=== PATIENT | male | born 1935 | race Caucasian/White ===

== ENCOUNTER 2019-05-22 16:56 | Inpatient (IN) | payer MEDICARE, OTHER ==
[~2019-05-22] VITALS: Ht 188 cm; Wt 97.4 kg
--- NOTE | 2019-05-22 17:50 | NUR ---
PT BIB [facility] AFTER HE WAS FOUND ON THE BATHROOM FLOOR. PT REPORTS HE WAS ON THE FLOOR AFTER A GLF, AND HAD BEEN LAYING THERE FOR 12 HOURS. PT ALSO REPORTS SOB. FAMILY REPORTS PT HAS FALLEN 4 TIMES IN THE LAST 2 DAYS. VS STABLE AT THIS TIME. FAMILY AT BEDSIDE. PT SEEN BY DR LUCIANO. WILL CONTINUE TO MONITOR.
--- NOTE | 2019-05-22 17:58 | NUR ---
FAMILY REPORTS PT IS NOT ON ANY MEDICATIONS. PT IS ON HOME OXYGEN 4L AT HOME.
[2019-05-22] MEDS ORDERED: ALBUTEROL SULFATE 2.5 MG/3 ML NPPB ONE (18:00)
[2019-05-22] MEDS ORDERED: IPRATROPIUM 0.5 MG/2.5 ML INHA NPPB ONE (18:00)
[2019-05-22 18:06] LABS: BASOPHILS # (AUTO) 0.02 x10^3/uL (0-0.1); BASOPHILS % (AUTO) 0 % (0-1); EOSINOPHILS # (AUTO) 0.04 x10^3/uL (0-0.4); EOSINOPHILS % (AUTO) 1 % (1-7); LYMPHOCYTES # (AUTO) 0.63 x10^3/uL (1-3.4); LYMPHOCYTES % (AUTO) 8 % (22-44); MD NO; MEAN CORPUSCULAR HEMOGLOBIN 30.7 pg (27.5-34.5); MEAN CORPUSCULAR HGB CONC 31.5 g/dL (33.2-36.2); MEAN CORPUSCULAR VOLUME 97.3 fL (81-97); MONOCYTES # (AUTO) 0.62 x10^3/uL (0.2-0.8); MONOCYTES % (AUTO) 8 % (2-9); NEUTROPHILS # (AUTO) 6.24 x10^3/uL (1.8-6.8); NEUTROPHILS % (AUTO) 83 % (42-75); PLATELET COUNT 190 x10^3/uL (130-400); RED BLOOD COUNT 5.16 x10^6/uL (4.38-5.82); RED CELL DISTRIBUTION WIDTH 15.7 % (9.4-14.8)
[2019-05-22 18:19] LABS: ALANINE AMINOTRANSFERASE 19 U/L (12-78); ANION GAP 8 mmol/L (5-15); CALCIUM 8.9 mg/dL (8.5-10.1); CHLORIDE 98 mmol/L (98-107)
[2019-05-22 18:23] LABS: ALKALINE PHOSPHATASE 114 U/L (45-117); BILIRUBIN,TOTAL 1.5 mg/dL (0.2-1.0); CREATINE KINASE, TOTAL 134 U/L (39-308); TOTAL PROTEIN 7.5 g/dL (6.4-8.2); TROPONIN I < 0.015 ng/mL (0.000-0.045)
--- NOTE | 2019-05-22 18:33 | NUR ---
PT RESTING IN ROOM. VS STABLE. BARREL SCRAPER ON. CALL LIGHT IN PLACE. WILL CONTINUE TO MONITOR.
[2019-05-22] MEDS ORDERED: SODIUM CHLORIDE FLUSH 10ML SYR IVF ONE (19:00)
--- NOTE | 2019-05-22 19:06 | NUR ---
Report received from SRUTHI Montilla Pt alert and sitting up on tedreusebio. Pt stating he wants a chocolate milkshake and told his family members "get me a damn milkshake". This RN and SRUTHI Montilla educated pt on current NPO status.
--- NOTE | 2019-05-22 19:50 | NUR ---
MD at bedside pt agreeable to admit. Pt okay for PO intake per MD.
[2019-05-22] MEDS ORDERED: FUROSEMIDE 40 MG/4 ML IV ONE (20:00)
[2019-05-22] MEDS ORDERED: FUROSEMIDE 40 MG/4 ML ONE (20:29)
--- NOTE | 2019-05-22 20:44 | NUR ---
Pt able to stand at bedside to pee in urinal. Urine sent to lab. Pt medicated per JUL. Pt tolerated one chocolate protein shake. Admitting MD at bedside.
[2019-05-22 20:51] LABS: MICROSCOPIC AUTO
[2019-05-22] MEDS ORDERED: BISACODYL 10 MG SUPP PR PRN (21:00)
[2019-05-22] MEDS ORDERED: ONDANSETRON ODT 4 MG PO PRN (21:00)
[2019-05-22] MEDS ORDERED: POLYETHYLENE GLYCOL 17 GM PACKET PO PRN (21:00)
[2019-05-22] MEDS ORDERED: ACETAMINOPHEN 325 MG TABLET PO PRN (21:00)
[2019-05-22] MEDS ORDERED: HEPARIN 5,000 UNITS/ML, 1ML ONE (21:19)
[2019-05-22] MEDS ORDERED: CEFTRIAXONE PMX 1GM/50ML 50 ML IV ONE (21:30)
[2019-05-22] MEDS: HEPARIN 5,000 UNITS/ML, 1ML SQ SCH (21:36)
--- NOTE | 2019-05-22 21:38 | NUR ---
Report given to SRUTHI Arias Heparin given.
--- NOTE | 2019-05-22 21:52 | NUR ---
At time of admit, pt alert and in NAD. Pt on baseline 4L NC.
[2019-05-22 22:02] VITALS: BP 136/84
[2019-05-22] MEDS: CEFTRIAXONE PMX 1GM/50ML 50 ML IV SCH (23:12)
[2019-05-22] MEDS: metFORMIN 500 MG TABLET PO SCH (23:13)
[2019-05-22] MEDS: SODIUM CHLORIDE FLUSH 10ML SYR IVF SCH (23:15)
[2019-05-23] MEDS ORDERED: DEXTROSE 4 GM TAB.CHEW PO PRN
[2019-05-23] MEDS ORDERED: GLUCAGON 1 MG IM PRN
[2019-05-23] MEDS ORDERED: DEXTROSE 50%, 50ML SYRINGE IVPush PRN
[2019-05-23] MEDS: INSULIN LISPRO 100 UNITS/ML, PEN SQ-INSULIN SCH ×5 (00:04→21:12)
[2019-05-23 00:08] VITALS: BP 147/84
[2019-05-23] MEDS ORDERED: ALBUTEROL/IPRATROPIUM 2.5MG/0.5MG, 3 ML NPPB SCH (00:30)
[2019-05-23] MEDS ORDERED: ALBUTEROL/IPRATROPIUM 2.5MG/0.5MG, 3 ML NPPB PRN ×2 (00:30)
[2019-05-23] MEDS: methylPREDNISolone SOD SUCC 125 MG/2 ML IVPush SCH ×3 (03:17→17:31)
[2019-05-23] MEDS ORDERED: INSULIN LISPRO 100 UNIT/ML, 3ML VIAL SQ ONE (03:30)
[2019-05-23] MEDS: HEPARIN 5,000 UNITS/ML, 1ML SQ SCH ×3 (05:58→23:49)
[2019-05-23 06:36] LABS: ANION GAP 10 mmol/L (5-15); CALCIUM 8.2 mg/dL (8.5-10.1); CHLORIDE 99 mmol/L (98-107)
[2019-05-23 06:40] LABS: BASOPHILS # (AUTO) 0.02 x10^3/uL (0-0.1); BASOPHILS % (AUTO) 0 % (0-1); CHOL/HDL RATIO 2.7; CHOLESTEROL, TOTAL 168 mg/dL (140-239); CREATININE 1.07 mg/dL (0.7-1.3); EOSINOPHILS # (AUTO) 0.01 x10^3/uL (0-0.4); EOSINOPHILS % (AUTO) 0 % (1-7); HDL CHOL % 38 % (26-37); HDL CHOLESTEROL (DIRECT) 63 mg/dL (40-60); LDL CHOLESTEROL,CALCULATED 91 mg/dL (54-169); LDL/HDL RATIO 1.4 (0.5-3.0); LYMPHOCYTES # (AUTO) 0.32 x10^3/uL (1-3.4); LYMPHOCYTES % (AUTO) 6 % (22-44); MD NO; MEAN CORPUSCULAR HEMOGLOBIN 31.2 pg (27.5-34.5); MEAN CORPUSCULAR HGB CONC 32.2 g/dL (33.2-36.2); MEAN CORPUSCULAR VOLUME 96.9 fL (81-97); MEAN PLATELET VOLUME 9.6 fL (7.4-10.4); MONOCYTES # (AUTO) 0.11 x10^3/uL (0.2-0.8); MONOCYTES % (AUTO) 2 % (2-9); NEUTROPHILS # (AUTO) 4.77 x10^3/uL (1.8-6.8); NEUTROPHILS % (AUTO) 91 % (42-75); PLATELET COUNT 184 x10^3/uL (130-400); RED BLOOD COUNT 4.68 x10^6/uL (4.38-5.82); TRIGLYCERIDES 68 mg/dL (50-200); VLDL CHOLESTEROL 14 mg/dL (0-25)
[2019-05-23 07:08] VITALS: BP 107/64
[2019-05-23] MEDS ORDERED: INSULIN GLARGINE 100 UNITS/ML, PEN SQ-INSULIN SCH (07:30)
[2019-05-23] MEDS: metFORMIN 500 MG TABLET PO SCH ×2 (08:50→17:31)
[2019-05-23] MEDS: FUROSEMIDE 20 MG/2 ML IV SCH ×2 (08:51→17:31)
[2019-05-23] MEDS: LISINOPRIL 5 MG TABLET PO SCH (08:51)
[2019-05-23] MEDS: SODIUM CHLORIDE FLUSH 10ML SYR IVF SCH ×2 (08:51→21:12)
[2019-05-23] MEDS: SENNA/DOCUSATE TABLET PO SCH (08:52)
[2019-05-23 13:43] VITALS: BP 103/68
[2019-05-23 14:38] LABS: TROPONIN I < 0.015 ng/mL (0.000-0.045)
[2019-05-23 18:48] VITALS: BP 112/71
[2019-05-23] MEDS: DOXYCYCLINE 100MG TABLET PO SCH (21:12)
[2019-05-23] MEDS: CEFTRIAXONE PMX 1GM/50ML 50 ML IV SCH (23:49)
[2019-05-24 00:49] VITALS: BP 105/62
[2019-05-24] MEDS: methylPREDNISolone SOD SUCC 125 MG/2 ML IVPush SCH ×3 (02:51→18:26)
[2019-05-24 06:16] LABS: ANION GAP 8 mmol/L (5-15); CALCIUM 8.3 mg/dL (8.5-10.1); CHLORIDE 97 mmol/L (98-107)
[2019-05-24 06:18] LABS: CREATININE 1.08 mg/dL (0.7-1.3)
[2019-05-24 07:56] VITALS: BP 122/76
[2019-05-24] MEDS: FUROSEMIDE 20 MG/2 ML IV SCH ×2 (07:59→18:26)
[2019-05-24] MEDS: DOXYCYCLINE 100MG TABLET PO SCH ×2 (08:00→21:27)
[2019-05-24] MEDS: SENNA/DOCUSATE TABLET PO SCH (08:00)
[2019-05-24] MEDS: metFORMIN 500 MG TABLET PO SCH ×2 (08:00→18:26)
[2019-05-24] MEDS: LISINOPRIL 5 MG TABLET PO SCH (08:01)
[2019-05-24] MEDS: SODIUM CHLORIDE FLUSH 10ML SYR IVF SCH ×2 (08:01→21:26)
[2019-05-24] MEDS: INSULIN LISPRO 100 UNITS/ML, PEN SQ-INSULIN SCH ×4 (08:02→21:26)
[2019-05-24] MEDS: HEPARIN 5,000 UNITS/ML, 1ML SQ SCH ×2 (08:35→15:54)
[2019-05-24] MEDS ORDERED: INSULIN GLARGINE 100 UNITS/ML, PEN SQ-INSULIN SCH (09:00)
[2019-05-24] MEDS: ASPIRIN 81 MG TABLET CHEW PO SCH (10:56)
[2019-05-24 14:57] VITALS: BP 110/66
[2019-05-24 19:14] VITALS: BP 103/67
[2019-05-24] MEDS: INSULIN GLARGINE 100 UNITS/ML, PEN SQ-INSULIN SCH (21:00)
[2019-05-25] MEDS: CEFTRIAXONE PMX 1GM/50ML 50 ML IV SCH (00:13)
[2019-05-25] MEDS: HEPARIN 5,000 UNITS/ML, 1ML SQ SCH ×3 (00:13→17:42)
[2019-05-25 00:18] VITALS: BP 119/80
[2019-05-25] MEDS: methylPREDNISolone SOD SUCC 125 MG/2 ML IVPush SCH ×2 (03:07→11:46)
[2019-05-25 07:15] VITALS: BP 111/66
[2019-05-25] MEDS: SENNA/DOCUSATE TABLET PO SCH (08:52)
[2019-05-25] MEDS: DOXYCYCLINE 100MG TABLET PO SCH ×2 (08:52→20:25)
[2019-05-25] MEDS: ASPIRIN 81 MG TABLET CHEW PO SCH (08:52)
[2019-05-25] MEDS: metFORMIN 500 MG TABLET PO SCH ×2 (08:53→17:42)
[2019-05-25] MEDS: INSULIN LISPRO 100 UNITS/ML, PEN SQ-INSULIN SCH ×4 (08:53→20:43)
[2019-05-25] MEDS: SODIUM CHLORIDE FLUSH 10ML SYR IVF SCH ×2 (09:00→20:25)
[2019-05-25] MEDS ORDERED: REGADENOSON 0.4 MG/5 ML SYRINGE ONE (10:49)
[2019-05-25] MEDS: FUROSEMIDE 20 MG/2 ML IV SCH ×3 (11:46→21:26)
[2019-05-25] MEDS: LISINOPRIL 5 MG TABLET PO SCH (11:46)
[2019-05-25] MEDS: INSULIN GLARGINE 100 UNITS/ML, PEN SQ-INSULIN SCH ×2 (12:19→20:43)
[2019-05-25 12:30] VITALS: BP 111/63
[2019-05-25] MEDS: ESCITALOPRAM 10MG TABLET PO SCH (14:01)
[2019-05-25 17:39] VITALS: BP 112/70
[2019-05-25 19:04] VITALS: BP 121/70
[2019-05-25] MEDS ORDERED: methylPREDNISolone SOD SUCC 125 MG/2 ML IVPush SCH (21:00)
[2019-05-25 21:29] VITALS: BP 140/88
[2019-05-26] MEDS: CEFTRIAXONE PMX 1GM/50ML 50 ML IV SCH (00:43)
[2019-05-26] MEDS: HEPARIN 5,000 UNITS/ML, 1ML SQ SCH ×2 (00:48→09:31)
[2019-05-26 03:00] VITALS: BP 104/63
[2019-05-26 06:28] LABS: CHLORIDE 96 mmol/L (98-107)
[2019-05-26 06:35] LABS: ANION GAP 5 mmol/L (5-15); CALCIUM 8.1 mg/dL (8.5-10.1); CREATININE 0.89 mg/dL (0.7-1.3)
[2019-05-26 06:47] VITALS: BP 95/59
[2019-05-26] MEDS: INSULIN LISPRO 100 UNITS/ML, PEN SQ-INSULIN SCH ×2 (08:02→11:22)
[2019-05-26] MEDS: SENNA/DOCUSATE TABLET PO SCH (09:31)
[2019-05-26] MEDS: metFORMIN 500 MG TABLET PO SCH (09:31)
[2019-05-26] MEDS: ESCITALOPRAM 10MG TABLET PO SCH (09:31)
[2019-05-26] MEDS: ASPIRIN 81 MG TABLET CHEW PO SCH (09:31)
[2019-05-26] MEDS: DOXYCYCLINE 100MG TABLET PO SCH (09:31)
[2019-05-26] MEDS: SODIUM CHLORIDE FLUSH 10ML SYR IVF SCH (09:32)
[2019-05-26 09:34] VITALS: BP 113/73
[2019-05-26] MEDS: LISINOPRIL 5 MG TABLET PO SCH (09:35)
[2019-05-26] MEDS ORDERED: ASPI-515 PO (11:30)
[2019-05-26] MEDS ORDERED: INSU100I13 SQ-INSULIN (11:30)
[2019-05-26] MEDS ORDERED: LISI5TAB7 PO (11:30)
[2019-05-26] MEDS ORDERED: PRED20TA PO (11:30)
[2019-05-26] MEDS ORDERED: DOXY100T PO (11:30)
[2019-05-26] MEDS ORDERED: METF500T PO (11:30)
[2019-05-26] MEDS ORDERED: FURO40TA6 PO (11:30)
[2019-05-26] MEDS ORDERED: ESCI10TA PO (11:30)
[2019-05-26] MEDS ORDERED: DEXT-230 PO (11:30)
[2019-05-26] MEDS ORDERED: POTA10TA5 PO (11:30)
[2019-05-26] MEDS ORDERED: HEPA50002 SQ (11:30)
[2019-05-26] MEDS ORDERED: POLY17PO5 PO (11:30)
[2019-05-26] MEDS ORDERED: SENN-193 PO (11:30)
[2019-05-26] MEDS ORDERED: INSU100I11 SQ-INSULIN (11:30)
[2019-05-26] MEDS ORDERED: ACET325T26 PO (11:30)
[2019-05-26] MEDS ORDERED: ATOR20TA PO (11:31)
[2019-05-26 12:12] VITALS: BP 122/73
[2019-05-26] MEDS ORDERED: POTASSIUM CHLORIDE 10 MEQ TABLET.ER PO SCH (17:00)
[2019-05-26] MEDS ORDERED: INSULIN GLARGINE 100 UNITS/ML, PEN SQ-INSULIN SCH (21:00)
[2019-05-27] MEDS ORDERED: FUROSEMIDE 40 MG TABLET PO SCH (09:00)
== END 2019-05-26 15:22 | DRG 291 ==
LOC: ED 19:31 → EDIP 20:50 → 4EST 22:04
PROVIDERS: ADMIT Hospitalist; ATTEND Hospitalist
DX: I11.0 Hypertensive heart disease with heart failure (principal); J96.21 Acute and chronic respiratory failure with hypoxia; J44.1 Chronic obstructive pulmonary disease with (acute) exacerbation; I50.23 Acute on chronic systolic (congestive) heart failure; D75.89 Other specified diseases of blood and blood-forming organs; E11.65 Type 2 diabetes mellitus with hyperglycemia; F32.9 Major depressive disorder, single episode, unspecified; G31.84 Mild cognitive impairment of uncertain or unknown etiology; I08.1 Rheumatic disorders of both mitral and tricuspid valves; I27.20 Pulmonary hypertension, unspecified; N30.90 Cystitis, unspecified without hematuria; Z66 Do not resuscitate; Z87.891 Personal history of nicotine dependence; Z99.81 Dependence on supplemental oxygen
CPT/HCPCS: 36415; 71045; 78452; 80048; 80053; 80061; 81001; 82550; 82607; 82962; 83036; 83605; 83880; 84145; 84443; 84484; 85025; 87040; 93005; 93017; 93306; 93880; 94640; 96374; G0378; J0696; J1644; J1940; J2785; J7613; J7644; 92523-GN; A9502; C9898; J1815; J1817; J2930; J7512